=== PATIENT | female | born 1960 | race Caucasian/White ===

== ENCOUNTER → 2020-12-14 00:34 | Outpatient (CLI) | payer BC, SELFPAY ==
[2020-12-14 20:39] LABS: SARS-CoV-2 RNA PCR Negative
== END ==
PROVIDERS: PCP Internal Medicine; Visit Provider Internal Medicine Gastroenterology
DX: Z01.812 Encounter for preprocedural laboratory examination (principal); Z20.822 Contact with and (suspected) exposure to COVID-19
CPT/HCPCS: C9803; U0003; U0005

== ENCOUNTER 2020-12-18 00:42 | Day surgery (SDC) | payer BC, SELFPAY ==
[2020-12-05 10:10] VITALS: BMI 32.0
[2020-12-18 09:20] VITALS: BP 141/91; PULSE 74; RESP 16; TEMP 36.5; O2SAT 99; BMI 33.0
[2020-12-18] MEDS: LACTATED RINGERS 1,000 ML 150 ML IV CONT (09:35)
--- NOTE | 2020-12-18 09:57 | WPDANESEPPF ---
Anes - Initial Pre Proc Eval Procedure: Operation Date: 12/18/20 10:00 Proposed Procedures p Screening Colonoscopy - Kiko Leal MD Date/Time: 12/18/20 09:57 Surgeon: Kiko Leal MD Pre Op Diagnosis: neoplasm screening Patient Data Age: 60 Gender: F Height: 5 ft 6 in Weight: 92.7 kg Last Vital Signs Temp 36.5 C 12/18/20 09:20 Pulse 74 12/18/20 09:20 Resp 16 12/18/20 09:20 BP 141/91 H 12/18/20 09:20 Pulse Ox 99 12/18/20 09:20 Allergies Allergy/AdvReac Type Severity Reaction Status Date / Time No Known Allergies Allergy Verified 12/18/20 09:19 Home Medications Medication Instructions Recorded Confirmed Type sodium,potassium,mag sulfates See Rx Instructions .ROUTE 11/29/20 Rx [Suprep Bowel Prep Kit] .COMPLEX #1 ml levothyroxine 100 mcg PO DAILY 12/05/20 12/05/20 History lisinopril-hydrochlorothiazide 1 tablet PO DAILY 12/05/20 12/05/20 History peg 3350-electrolytes [Golytely] 240 ml PO Q10M #1 ea 12/05/20 Rx Patient hx anesthesia problems: none Family hx anesthesia problems: none PMFSH Past Medical History Medical History (Updated 12/18/20 @ 09:57 by Antwan Suarez MD) HTN (hypertension) Hypothyroidism Obesity Surgical History Surgical History (Updated 12/18/20 @ 10:00 by Antwan Suarez MD) H/O colonoscopy Social History Social History Smoking status: Never smoker Alcohol intake: current Drinks per week: 4 Substance use: never Substance use type: does not use Living arrangements: with family Spiritual care concerns: No Anes - Eval Final PreProcedure Day of Procedure 12/18/20 09:57 Patient weight: obese Heart: regular rate and rhythm Lungs: clear to auscultation Airway: Mallampati scale class II Neurological: alert and oriented Last oral intake: >/= 8 hours ASA classification: II Emergent: no Anesthetic plan: proceed Anesthesia type and monitoring: general GIVS and standard monitoring Informed Consent: The patient's anesthetic plan and its attendant risks and benefits were discussed with the patient/family/POA. Questions were solicited and answers provided to the satisfaction of the patient/family/POA.
--- NOTE | 2020-12-18 10:37 | PM.HPGS ---
History of Present Illness History of Present Illness Consent: Risks, benefits, and alternatives have been discussed and questions answered. Patient agrees to proceed with procedure. Chief complaint: neoplasm screening Narrative: Simi De La O is a 60 year old female here for colon screening, last one 10 years ago. Review of Systems Constitutional: Constitutional: Denies headache(s) and Denies weakness Eyes: Eyes: Denies blurry vision ENT: Reports Normal hearing present, Denies headache(s) and Denies neck pain Cardiovascular: Cardiovascular: Denies chest pain and Denies dyspnea Respiratory: Respiratory: Denies dyspnea Gastrointestinal: Gastrointestinal: Reports no additional gastrointestinal complaints Genitourinary: Genitourinary: Denies dysuria Musculoskeletal: Musculoskeletal: Denies neck pain Integumentary/Breasts: Skin/Breast: Denies dry skin Neurologic: Reports Normal hearing present, Denies headache(s) and Denies weakness Psychiatric: Psychiatric: Denies anxiety Endocrine: Endocrine: Denies change in body appearance Hematologic/Lymphatic: Hematologic/Lymphatic: Denies easy bleeding Allergic/Immunologic: Allergic/Immunologic: Denies urticaria PMF Past Medical History Medical History (Updated 12/18/20 @ 10:37 by Kiko Leal MD) Colon cancer screening HTN (hypertension) Hypothyroidism Obesity Surgical History Surgical History (Updated 12/18/20 @ 10:00 by Antwan Suarez MD) H/O colonoscopy Social History Social History Smoking status: Never smoker Alcohol intake: current Drinks per week: 4 Substance use: never Substance use type: does not use Living arrangements: with family Spiritual care concerns: No Meds Home Medications and Allergies Home Medications Medication Instructions Recorded Confirmed Type sodium,potassium,mag sulfates See Rx Instructions .ROUTE 11/29/20 Rx [Suprep Bowel Prep Kit] .COMPLEX #1 ml levothyroxine 100 mcg PO DAILY 12/05/20 12/05/20 History lisinopril-hydrochlorothiazide 1 tablet PO DAILY 12/05/20 12/05/20 History peg 3350-electrolytes [Golytely] 240 ml PO Q10M #1 ea 12/05/20 Rx Allergies Allergy/AdvReac Type Severity Reaction Status Date / Time No Known Allergies Allergy Verified 12/18/20 09:19 Vital Signs Vital Signs - 24 hr 12/18/20 09:20 Temperature 97.7 F Pulse Rate 74 Respiratory Rate 16 Blood Pressure 141/91 H Pulse Oximetry 99 Exam Const: General: comfortable and no acute distress HENMT: General nose exam: Normal nares present Eyes: General: appearance normal, both eyes and all related structures Neck: Neck: no JVD Resp: Auscultation: clear to auscultation bilaterally Cardio: Rate: regular rate Rhythm: regular rhythm GI: Inspection: non-distended GI Palp: Yes Soft to palpation Skin: General skin exam: normal color Neuro: General: gait normal Speech: normal speech Extrem: General: normal to inspection Psych: Mental Status: mental status grossly normal Assessment and Plan Assessment and plan (1) Colon cancer screening: Code(s): Z12.11 - Encounter for screening for malignant neoplasm of colon Status: Acute Assessment and Plan: proceed with colonoscopy
[2020-12-18 11:02] VITALS: BP 102/71; PULSE 74; RESP 18; O2SAT 98
[2020-12-18 11:12] VITALS: BP 119/79; PULSE 72; RESP 19; O2SAT 97
[2020-12-18 11:22] VITALS: BP 129/84; PULSE 66; RESP 18; O2SAT 99
== END 2020-12-18 11:36 | disposition home or self-care (01) ==
PROVIDERS: PCP Internal Medicine; Visit Provider Internal Medicine Gastroenterology
PROC: 0DJD8ZZ Inspection of Lower Intestinal Tract, Via Natural or Artificial Opening Endoscopic (ICD-10-PCS; CPT 45378; principal; 2020-12-18 10:00)
DX: Z12.11 Encounter for screening for malignant neoplasm of colon (principal); K57.30 Diverticulosis of large intestine without perforation or abscess without bleeding; K64.8 Other hemorrhoids; I10 Essential (primary) hypertension; E03.9 Hypothyroidism, unspecified; E66.9 Obesity, unspecified; Z68.33 Body mass index [BMI] 33.0-33.9, adult
CPT/HCPCS: 45378; J2704; J7120

== ENCOUNTER 2021-01-27 07:38 | Outpatient (CLI) | payer BC, SELFPAY ==
--- NOTE | ~2021-01-27 | US_ITS ---
US abdomen complete INDICATION: Left-sided abdominal pain PROCEDURE: Realtime right upper abdominal ultrasound. COMPARISON: No prior studies for comparison. FINDINGS: The pancreas is normal without focal mass or pancreatic ductal dilation. Liver echotexture is normal without focal mass or intrahepatic biliary dilatation. There is normal directional flow i n the portal vein. The gallbladder is normal without stones, gallbladder wall thickening or pericholecystic fluid. Comm on bile duct measures 2 mm. No sonographic Henderson's sign. Renal echotexture is within normal limits bilaterally without hydronephrosis, contour deforming mass or renal stone. The aorta and IVC are unre markable. IMPRESSION: 1: Unremarkable abdominal ultrasound. Reviewed, dictated and finalized at location A.
== END 2021-01-27 07:39 | disposition home or self-care (01) ==
PROVIDERS: PCP Internal Medicine; Visit Provider Internal Medicine Gastroenterology
DX: R10.13 Epigastric pain (principal)
CPT/HCPCS: 76700

== ENCOUNTER → 2022-12-03 11:06 | Outpatient (CLI) | payer BC, SELFPAY ==
--- NOTE | ~2022-12-03 | CT_ITS ---
EXAMINATION: CT abdomen pelvis w con DATE: 12/03/2022 11:52 INDICATION: Abdominal pain TECHNIQUE: Computed tomography (CT) of the abdomen and pelvis was performed with 100 mL Omnipaque-350 intravenous contrast. Automated exposure control and iterative reconstruction technique were employe d. The dose-length product was 933.72 mGy-cm. COMPARISON: None FINDINGS: Animal dependent atelectasis in the right lower lobe. Heart size is normal. No pericardial or pleural effusion. Liver, gallbladder, spleen, pancreas, bilateral adrenal glands and kidneys are normal. [place] els including the appendix are normal. Bladder, retroflexed uterus and bilateral adnexa are unremarka ble. No free intraperitoneal gas or fluid. No pathologically enlarged abdominal or pelvic lymphadenop athy. L5 spondylolysis with bilateral pars interarticularis defects and 7 mm anterolisthesis on S1. M oderate to severe lumbosacral spondylosis with mild spondylosis in the more cephalad lumbar and lower thoracic spine. Large chronic Schmorl's node positioned right and anterior to the epicenter of the s uperior endplate resulting in focal 40% vertebral body height loss. IMPRESSION: 1. No acute intra-abdominal/pelvic process. Reviewed, dictated and finalized at location L. [employer]
[2022-12-03 11:40] LABS: Estimated Glomerular Filt Rate > 60
== END ==
PROVIDERS: PCP Internal Medicine; Visit Provider Internal Medicine
DX: R10.9 Unspecified abdominal pain (principal)
CPT/HCPCS: 74177; Q9967

== ENCOUNTER 2024-08-20 02:34 | Emergency (ER) | payer BC, SELFPAY ==
[2024-08-20] VITALS (14 sets, daily range): BP systolic 110–155; BP diastolic 66–122; PULSE 76–89; RESP 12–26; TEMP 36.6–36.7; O2SAT 94–99
--- NOTE | ~2024-08-20 | XR_ITS ---
EXAMINATION: XR forearm LT 2V DATE: 08/20/2024 05:02 INDICATION: Left elbow injury. TECHNIQUE: 2 views of left forearm were obtained. COMPARISON: None. FINDINGS: Alignment is normal. No fracture. There is mild osteoarthritis of triscaphe joint and first carpometacarpal joint. No elbow joint effusion. IMPRESSION: 1. Polyarticular osteoarthritis. Reviewed, dictated and finalized at location A.
--- NOTE | ~2024-08-20 | XR_ITS ---
EXAMINATION: XR chest 1V DATE: 08/20/2024 05:02 INDICATION: Chest injury. TECHNIQUE: A single frontal view of the chest was obtained. COMPARISON: None. FINDINGS: There is no pneumonia, pleural effusion, or pneumothorax. The heart size is normal. There i s a comminuted fracture of left humeral diaphysis. IMPRESSION: 1. No acute cardiopulmonary disease. 2. Comminuted fracture of left humeral diaphysis. Reviewed, dictated and finalized at location A.
--- NOTE | ~2024-08-20 | XR_ITS ---
EXAMINATION: XR elbow LT 2V DATE: 08/20/2024 05:02 INDICATION: Left elbow injury. TECHNIQUE: 2 views of left elbow were obtained. COMPARISON: None. FINDINGS: Partially visualized is a comminuted fracture of left humeral diaphysis. Alignment is jalil l at the elbow. Joint spaces are normal. No elbow joint effusion. IMPRESSION: 1. Comminuted fracture of left humeral diaphysis. Reviewed, dictated and finalized at location A.
--- NOTE | ~2024-08-20 | CT_ITS ---
EXAMINATION: CT cervical spine wo con DATE: 08/20/2024 05:09 INDICATION: Head injury. TECHNIQUE: Computed tomography (CT) of the cervical spine was performed without intravenous contrast. Automated exposure control and iterative reconstruction technique were employed. The dose-length pro duct was 400.52 mGy-cm. COMPARISON: None FINDINGS: There is kyphosis of cervical spine. Vertebral body heights are normal. There is mildly dec reased disc height at C3-C4 and severely decreased disc height from C4-C5 through T1-T2. The visualiz ed portions of the ribs demonstrate osteopenia. The following disc levels are specifically discussed: C2-C3: There is mild bilateral uncovertebral joint osteoarthritis. There is severe right and moderate left facet joint osteoarthritis. There is mild right neural foraminal stenosis. There is no central canal stenosis. C3-C4: There is moderate right uncovertebral joint hypertrophy. There is ankylosis of the facet joint s with moderate right and mild left hypertrophy. There is mild right neural foraminal stenosis. There is no central canal stenosis. C4-C5: There is severe bilateral uncovertebral joint osteoarthritis. There is moderate bilateral face t joint osteoarthritis. There is mild bilateral neural foraminal stenosis. There is mild central juan josé l stenosis. C5-C6: There is severe bilateral uncovertebral joint osteoarthritis. There is severe bilateral facet joint osteoarthritis. There is mild bilateral neural foraminal stenosis. There is mild central canal stenosis. C6-C7: There is mild right and severe left uncovertebral joint osteoarthritis. There is mild right an d severe left facet joint osteoarthritis. There is mild left neural foraminal stenosis. There is mild central canal stenosis. C7-T1: There is severe bilateral uncovertebral joint osteoarthritis. There is severe bilateral facet joint osteoarthritis. There is mild bilateral neural foraminal stenosis. There is no central canal st enosis. IMPRESSION: 1. No fracture. 2. Severe cervical spondylosis. Reviewed, dictated and finalized at location A.
--- NOTE | ~2024-08-20 | CT_ITS ---
EXAMINATION: CT brain wo con DATE: 08/20/2024 05:09 INDICATION: Head injury. TECHNIQUE: Computed tomography (CT) of the head was performed without intravenous contrast. The mA wa s adjusted according to patient size. Iterative reconstruction technique was employed. The dose-lengt h product was 681.00 mGy-cm. COMPARISON: None FINDINGS: There is no intracranial hemorrhage, acute infarction, or abnormal intracranial mass lesion . The ventricles are normal in size. There is mucosal thickening in the paranasal sinuses. The orbits are normal. The mastoid air cells are normal. There is a left frontal scalp laceration. IMPRESSION: 1. Normal brain. Reviewed, dictated and finalized at location A. IMPRESSION: 1. Normal brain.
--- NOTE | ~2024-08-20 | XR_ITS ---
EXAMINATION: XR shoulder LT min 2V DATE: 08/20/2024 05:02 INDICATION: Left upper arm injury. TECHNIQUE: 2 views of left shoulder were obtained. COMPARISON: None. FINDINGS: There is a segmental comminuted fracture of left humeral diaphysis. The main distal fractur e fragment demonstrates shortening and lateral and posterior displacement and lateral angulation. Gle nohumeral joint is normal. There is mild acromioclavicular joint osteoarthritis. IMPRESSION: 1. Segmental comminuted fracture of left humeral diaphysis. Reviewed, dictated and finalized at location A.
--- NOTE | ~2024-08-20 | XR_ITS ---
EXAMINATION: XR humerus LT DATE: 08/20/2024 04:41 INDICATION: Left humerus injury. TECHNIQUE: 2 views of left humerus were obtained. COMPARISON: None. FINDINGS: There is a segmental comminuted fracture of left humeral diaphysis. The main distal fractur e fragment demonstrates posterior and lateral displacement and variable presentation and angulation. Glenohumeral joint is normal. There is mild acromioclavicular joint osteoarthritis. IMPRESSION: 1. Segmental comminuted fracture of left humeral diaphysis. Reviewed, dictated and finalized at location A.
[2024-08-20] MEDS: MORPHINE SULFATE (*CRX) 4 MG/ML INJ IV PUSH (03:27)
[2024-08-20] MEDS: THIAMINE HCL INJ 100 MG, FOLIC ACID INJ 1 MG, MAGNESIUM SULFATE INJ 1 GM in LACTATED RI... 1000 MG IV CONT (04:02)
[2024-08-20 06:49] LABS: Alanine Aminotransferase 18 U/L (6-35); Alkaline Phosphatase 70 U/L (38-126); Anion Gap 12 mmol/L (4-12); Aspartate Amino Transferase 27 U/L (14-36); Bilirubin,Total 0.8 mg/dL (0.2-1.3); Blood Urea Nitrogen 19 mg/dL (7-17); Calcium 8.1 mg/dL (8.4-10.2); Carbon Dioxide 23 mmol/L (22-30); Chloride 99 mmol/L (98-107); Estimated CRCL calculation 62 ml/min; Estimated Glomerular Filt Rate 56; Glucose 97 mg/dL (65-110); Lipase 94 U/L (23-300); Magnesium 2.3 mg/dL (1.6-2.3); Sodium 134 mmol/L (137-145)
[2024-08-20 06:54] LABS: Ethanol 160 mg/dL (<10)
[2024-08-20 07:04] LABS: Basophils Absolute Auto 0.1 K/mm3 (0.0-0.1); Basophils Percent Auto 0.5 % (0.2-1.2); Eosinophils Percent Auto 0.2 % (0-4.4); Hematocrit 37.7 % (37.0-47.0); Hemoglobin 12.2 g/dL (12.0-15.0); Immature Granulocyte Absolute 0.05 K/mm3 (0.00-0.031); Immature Granulocyte Percent A 0.4 % (0-0.5); Lymphocytes Absolute Auto 1.26 K/mm3 (0.9-3.2); Lymphocytes Percent Auto 9.8 % (18.3-44.2); Mean Corpuscular HGB Conc 32.4 g/dl (32-36); Mean Corpuscular Hemoglobin 30.7 pg (26-34); Mean Corpuscular Volume 94.7 fl (80-100); Mean Platelet Volume 10.9 fl (7.4-10.4); Monocytes Absolute Auto 0.6 K/mm3 (0.1-0.6); Monocytes Percent Auto 4.6 % (2.6-8.5); Neutrophils Absolute Auto 10.9 K/mm3 (1.3-6.7); Neutrophils Percent Auto 84.5 % (45.5-73.1); Platelet Count Result 166 k/mm3 (150-375); Red Blood Count 3.98 M/mm3 (4.2-5.4); Red Cell Distribution Width 13.5 % (11.5-14.5); White Blood Count 12.9 K/mm3 (4.5-10.0)
--- NOTE | 2024-08-20 07:18 | ED.HEATRA ---
HPI - Head Injury General Chief complaint: Trauma Stated complaint: fell down 2 steps/+ETOH lac and ?humerus fx History of Present Illness HPI Narrative: 63-year-old female presenting via EMS after trauma at home. She fell down several stairs after drinking alcohol. She states that she was drinking margaritas to celebrate, sustained injury to her forehead an obvious deformity to her left upper extremity. Patient is not clear if she lost consciousness or not but denies any blood thinner use. EMS placed a C-collar and a splint in the left arm. Patient describes significant pain in her left upper extremity but has good sensation and customer service representative strength distally. Not know for tetanus is up today. States that she has a headache, neck pain and left-sided arm pain. Denies any chest pain abdominal pain or back pain. She is able to move all her extremities aside from the limited abduction of the left arm. Related Data Home Medications Medication Instructions Recorded Confirmed levothyroxine 100 mcg tablet 100 mcg PO DAILY 12/05/20 12/05/20 lisinopril 20 1 tablet PO DAILY 12/05/20 12/05/20 mg-hydrochlorothiazide 25 mg tablet Allergies Allergy/AdvReac Type Severity Reaction Status Date / Time No Known Allergies Allergy Verified 08/20/24 02:43 Review of Systems Review of Systems: As above in HPI [facility] Past Medical History Medical History Colon cancer screening Epigastric pain HTN (hypertension) Hypothyroidism Obesity Surgical History Surgical History H/O colonoscopy Social History Social History Smoking status: Never smoker Alcohol intake: current Drinks per week: 4 Substance use: never Substance use type: does not use Living arrangements: with family Spiritual care concerns: No Exam Narrative: GENERAL: intoxicated appearance, awake alert able to answer my questions, complaining of pain. HEAD: [Normocephalic, Stellate laceration to her forehead that does not have any significant dehiscence or wound bleeding. EYES: [PERRLA and EOMI.] ENT: Nares clear, no rhinorrhea or epistaxis. Mucous membranes moist. NECK: Supple. CHEST: [Clear to auscultation. No respiratory distress.] HEART: [Regular rate and rhythm]. No murmur heard. [Normal peripheral pulses.] ABDOMEN: [Soft, nondistended], [nontender], [No rigidity or guarding] EXTREMITIES: severely comminuted and obviously deformed left upper extremity. Not able to abduct or flex at the shoulder. No clavicle tenderness or scapular tenderness. No midline cervical thoracic or lumbar spinal tenderness. Full customer service representative strength 5/5, able to radial and ulnar deviate the wrist, able to pronate and supinate the wrist. Able to oppose each digit and make a thumbs-up sign SKIN: Warm, dry, no rash. NEURO: [No focal deficits]. Alert and oriented [x3.] clinically intoxicated but answer my questions. PSYCH: [Normal mood and affect.] Course Vital Signs Vital signs: Vital Signs Temperature 36.6 C 08/20/24 02:35 Pulse Rate 81 08/20/24 02:35 Respiratory Rate 17 08/20/24 02:35 Blood Pressure 148/122 H 08/20/24 02:35 Pulse Oximetry 99 08/20/24 02:35 Oxygen Delivery Room Air 08/20/24 02:35 Temperature 36.6 C 08/20/24 02:35 Pulse Rate 85 08/20/24 06:10 Respiratory Rate 14 08/20/24 06:10 Blood Pressure 155/91 H 08/20/24 06:10 Pulse Oximetry 98 08/20/24 06:10 Oxygen Delivery Room Air 08/20/24 02:35 MDM - Head Injury MDM Narrative Medical decision making narrative: 63-year-old female presenting as a trauma after falling down some stairs. She is intoxicated and is not sure if she lost consciousness. She has obvious head trauma, is in a C-collar via EMS. Her left upper extremity severely deformed but she has good radial pulses
[2024-08-20 07:26] LABS: INR 1.2; Prothrombin Time 15.3 Seconds (11.1-14.7)
[2024-08-20 07:27] LABS: Partial Thromboplastin Time 25.4 Seconds (22.3-36.8)
--- NOTE | 2024-08-20 07:48 | PC.NURSE ---
Assumed care of pt. Assessment as documented. Cervical collare removed by Dr. Jasmine. Neuro checks WNL
[2024-08-20] MEDS: TETANUS,DIPHTHERIA,AC PERTUSSIS ADULT (0.5 ML) BOOSTRIX IM (09:03)
[2024-08-20] MEDS: HYDROmorphone HCL INJ (*CRX) 1 MG/ML SYR 0.5 MG IV PUSH (09:20)
--- NOTE | 2024-08-20 12:10 | PC.NURSE ---
Pt assessment unchanged. Ambulance present to transfer to [facility]. states he has directions to [facility].
== END 2024-08-20 12:11 | disposition short-term general hospital (02) ==
PROVIDERS: Emergency Provider Student in an Organized Health Care Education/Training Program; PCP Internal Medicine
DX: S42.352A Displaced comminuted fracture of shaft of humerus, left arm, initial encounter for closed fracture (principal); S01.81XA Laceration without foreign body of other part of head, initial encounter; F10.129 Alcohol abuse with intoxication, unspecified; Y90.6 Blood alcohol level of 120-199 mg/100 ml; Z23 Encounter for immunization; I10 Essential (primary) hypertension; E03.9 Hypothyroidism, unspecified; E66.9 Obesity, unspecified; Z68.34 Body mass index [BMI] 34.0-34.9, adult; M19.032 Primary osteoarthritis, left wrist; M18.9 Osteoarthritis of first carpometacarpal joint, unspecified; M47.812 Spondylosis without myelopathy or radiculopathy, cervical region; W10.9XXA Fall (on) (from) unspecified stairs and steps, initial encounter
CPT/HCPCS: 36415; 70450; 71045; 72125; 73030; 73060; 73070; 73090; 80053; 82077; 83690; 83735; 85025; 85610; 85730; 90471; 90715; 96365; 96375; 99285; J1171; J2004; J2270; J3411; J3475; J7120